=== PATIENT | female | born 1990 | race Caucasian/White ===

== ENCOUNTER 2016-06-24 22:53 | Emergency (ER) | payer MEDICAID | END 2016-06-25 02:09 | disposition home or self-care (01) | LOC: ER 22:53 | DX: R53.82 Chronic fatigue, unspecified (principal); Z79.899 Other long term (current) drug therapy; Z79.82 Long term (current) use of aspirin; Z79.84 Long term (current) use of oral hypoglycemic drugs; F32.9 Major depressive disorder, single episode, unspecified; F41.1 Generalized anxiety disorder; E28.2 Polycystic ovarian syndrome; J45.909 Unspecified asthma, uncomplicated; M79.7 Fibromyalgia | CPT/HCPCS: 36415; 80053; 81003; 82550; 84703; 85025; 87804; 87880 ==

== ENCOUNTER 2016-06-30 00:28 | Emergency (ER) | payer MEDICAID ==
[2016-06-30] MEDS ORDERED: ACETAMINOPHEN 325 MG TAB ONE (01:15)
[2016-06-30] MEDS ORDERED: SODIUM CHLORIDE 0.9% 0 ML ONE (01:46)
[2016-06-30] MEDS ORDERED: Ibuprofen 400 MG TAB ONE (02:37)
[2016-06-30] MEDS ORDERED: SODIUM CHLORIDE 0.9% 1,000 ML ONE ×2 (02:37→04:10)
[2016-06-30] MEDS ORDERED: CEFTRIAXONE 1 GM VIAL ONE (03:15)
[2016-06-30] MEDS ORDERED: SODIUM CHLORIDE 0.9% 100 ML IV ONE (03:15)
== END 2016-06-30 04:25 | disposition home or self-care (01) ==
LOC: ER 00:28
DX: J02.0 Streptococcal pharyngitis (principal); R00.0 Tachycardia, unspecified; R50.9 Fever, unspecified; Z79.899 Other long term (current) drug therapy; Z79.82 Long term (current) use of aspirin; Z79.84 Long term (current) use of oral hypoglycemic drugs; F32.9 Major depressive disorder, single episode, unspecified; F41.1 Generalized anxiety disorder; E28.2 Polycystic ovarian syndrome; J45.909 Unspecified asthma, uncomplicated; M79.7 Fibromyalgia
CPT/HCPCS: 36415; 71020; 80053; 81003; 83605; 84703; 85025; 87040; 87088; 87804; 87880; 96361; 96365

== ENCOUNTER 2016-07-01 00:37 | Emergency (ER) | payer MEDICAID ==
[2016-07-01] MEDS ORDERED: KETOROLAC 60 MG/2 ML VIAL IM ONE (02:44)
== END 2016-07-01 03:09 | disposition home or self-care (01) ==
LOC: ER 00:37
DX: J02.0 Streptococcal pharyngitis (principal); Z79.899 Other long term (current) drug therapy; Z79.84 Long term (current) use of oral hypoglycemic drugs; F32.9 Major depressive disorder, single episode, unspecified; E28.2 Polycystic ovarian syndrome; J45.909 Unspecified asthma, uncomplicated; M79.7 Fibromyalgia
CPT/HCPCS: 36415; 83605; 85025; 87040; 96372